=== PATIENT | female | born 1980 | race Caucasian/White ===

== ENCOUNTER → 2021-05-27 | Outpatient (CLI) | payer BC ==
--- NOTE | 2021-05-27 10:20 | Diagnostic Imaging Report ---
INDICATION: Routine screening. COMPARISON: No prior mammograms are available for comparison. TECHNIQUE: 2D and 3D bilateral screening mammography was performed with CAD. FINDINGS: Scattered fibroglandular densities are identified bilaterally. There is a slightly irregular density in the upper slightly outer left breast at mid depth. Additional views are recommended. No other abnormal densities are seen. There are scattered benign calcifications. No malignant-appearing microcalcifications are seen. The axillae are unremarkable. IMPRESSION: Left breast density. Additional views are recommended for further evaluation. ACR BI-RADS Category 0: Incomplete. (Needs additional imaging evaluation). Result letter will be mailed to the patient. Note: At least 10% of breast cancer is not imaged by mammography. Dictated by: Dictated on workstation # [id number]
== END ==
LOC: RAD 08:00
PROVIDERS: ATTEND Internal Medicine
DX: Z12.31 Encounter for screening mammogram for malignant neoplasm of breast (principal)
CPT/HCPCS: 77063; 77067

== ENCOUNTER → 2021-06-25 | Outpatient (CLI) | payer BC ==
--- NOTE | 2021-06-25 09:33 | Diagnostic Imaging Report ---
Indication: Left breast density. Correlation is made with diagnostic mammogram earlier the same day and screening mammogram from 05/27/2021. Sonographic interrogation upper and outer left breast was performed. No concerning sonographic finding is seen. No solid or cystic mass is detected. IMPRESSION: BI-RADS 3 No sonographic abnormality is seen. Even so, follow-up left mammogram in 6 months is recommended to show continued stability. ACR BI-RADS Category 3: Probably benign findings. Dictated by: Dictated on workstation # [id number]
--- NOTE | 2021-06-25 15:36 | Diagnostic Imaging Report ---
Indication: Left breast density. Patient presents for additional views. Correlation is made with screening study from 05/27/2021. Unilateral left 2-D and 3-D diagnostic mammography was performed. This includes spot compression CC and MLO views as well as conventional 90 degrees lateral views. Additional views show some vague residual density in the upper and outer left breast approximately 4 cm from the nipple, indeterminate. Further evaluation of this area with ultrasound is recommended. No suspicious calcifications are seen. IMPRESSION: BI-RADS 0 Vague residual density in the upper outer left breast 4 cm from the nipple with additional views. Further evaluation with ultrasound is recommended and will be performed today. ACR BI-RADS Category 0: Incomplete. (Needs additional imaging evaluation). Result letter will be mailed to the patient. Note: At least 10% of breast cancer is not imaged by mammography. Dictated by: Dictated on workstation # [id number]
== END ==
LOC: RAD 09:15
PROVIDERS: ATTEND Internal Medicine
DX: N63.20 Unspecified lump in the left breast, unspecified quadrant (principal)
CPT/HCPCS: 76642; 77065; G0279

== ENCOUNTER → 2022-05-26 | Outpatient (CLI) | payer BC ==
--- NOTE | 2022-05-26 13:03 | Diagnostic Imaging Report ---
3-D bilateral diagnostic mammogram with CAD. CAD is utilized. The current study was also evaluated with a Computer Aided Detection (CAD) system. This study was compared to the prior exams of 05/27/2021 and 06/25/2021. At this time there are no current complaints. The screening mammogram performed on 05/27/2021 noted a small irregular density in the upper slightly outer left breast at mid depth. The subsequent diagnostic mammogram and ultrasound performed on 06/25/2021 failed to show any sign of malignancy. A six-month follow-up exam was recommended for continued evaluation but the patient was unable to make the follow-up exam. On this study the area in question is again evident and does not appear to change. I do suspect this is a benign process. There are scattered fibroglandular densities in both breasts which could obscure a lesion. Overall, there has been no significant change since the prior study. There is no primary or secondary sign of malignancy noted. IMPRESSION: 1. The small density in the left breast seen previously appears stable and is most likely due to fibroglandular tissue alone. There is no evidence of malignancy. 2. The patient should have her annual bilateral screening mammogram on schedule in April 2023. ACR BI-RADS Category 1: Negative. Result letter will be mailed to the patient. Note: At least 10% of breast cancer is not imaged by mammography. Dictated by: Dictated on workstation # [id number]
== END ==
LOC: RAD 09:15
PROVIDERS: ATTEND Internal Medicine
DX: R92.2 Inconclusive mammogram (principal)
CPT/HCPCS: 77066; G0279; 77062

== ENCOUNTER → 2023-05-27 | Outpatient (CLI) | payer BC, MEDICAID ==
--- NOTE | 2023-05-27 13:37 | Diagnostic Imaging Report ---
Bilateral digital 2-D and 3-D screening with CAD. The current study was also evaluated with a Computer Aided Detection (CAD) system. COMPARISON: 05/21 and 05/20 FINDINGS: density 1 No breast mass, spiculated lesion, architectural distortion, suspicious calcifications or changes to suggest malignancy. IMPRESSION: BI-RADS Category 1 ACR BI-RADS Category 1: Negative. Result letter will be mailed to the patient. Note: At least 10% of breast cancer is not imaged by mammography. Dictated by: Dictated on workstation # [id number]
== END ==
LOC: RAD 09:15
PROVIDERS: ATTEND Internal Medicine
DX: Z12.31 Encounter for screening mammogram for malignant neoplasm of breast (principal)
CPT/HCPCS: 77063; 77067